=== PATIENT | female | born 1935 | race African-American/Black ===

== ENCOUNTER 2017-01-21 05:20 | Day surgery (SDC) | payer MEDICARE ==
[2017-01-17 11:45] LABS: BASOPHILS 0.7 %; BASOPHILS ABSOLUTE 0.05 10/3/uL (0.0-0.16); EOSINOPHILS 4.9 %; EOSINOPHILS ABSOLUTE 0.35 10/3/uL (0.0-0.53); LYMPHOCYTES 50.3 %; LYMPHOCYTES ABSOLUTE 3.61 10/3/uL (0.67-4.30); MEAN CORPUS HGB CONC 35.3 g/dL (32.0-36.0); MEAN CORPUSCULAR HEMOGLOB 28.5 pg (26.0-34.0); MEAN CORPUSCULAR VOLUME 80.8 fL (80-100); MEAN PLATELET VOLUME 11.4 fL (9.2-13.0); NEUTROPHILS 37.1 %; NEUTROPHILS ABSOLUTE 2.66 10/3/uL (2.02-8.40); PLATELET COUNT 230 10/3/uL (150-400); RED CELL COUNT 4.21 10/6/uL (4.0-5.6); WHITE BLOOD CELLS 7.2 10/3/uL (4.5-10.5)
[2017-01-17 11:46] LABS: MANUAL DIFF NO %
[2017-01-17 11:50] LABS: INTERNATIONAL NORMAL RATI 3.1 UNITS (-)
[2017-01-17 11:51] LABS: PARTIAL THROMBO TIME 47.3 SEC (22.5-37.2); PROTIME (NOT ORD) 31.4 SEC (12.0-14.5)
[2017-01-17 12:00] LABS: BUN (BLOOD UREA NITROGEN) 9 MG/DL (6-23); CALCIUM, SERUM 9.9 MG/DL (8.5-10.4); CHLORIDE, SERUM 107 MMOL/L (96-112); CO2 (CARBON DIOXIDE) 31 MMOL/L (24-34); CREATININE 0.92 MG/DL (0.55-1.02); GFR AFRICAN AMERICAN 69 ML/MIN (>=60); GFR NON AFRICAN AMERICAN 59 ML/MIN (>=60); GLUCOSE, SERUM 92 MG/DL (60-99); POTASSIUM, SERUM 4.1 MMOL/L (3.5-5.3); SODIUM, SERUM 143 MMOL/L (135-148)
[2017-01-18 11:44] LABS: ALKALINE PHOSPHATASE 96 U/L (45-117); SGOT(AST) 14 U/L (5-40); SGPT(ALT) 12 U/L (5-65); TOTAL PROTEIN 7.8 G/DL (6.0-8.5)
[2017-01-18 11:46] LABS: ALBUMIN 3.9 G/DL (3.5-5.0); DIRECT BILIRUBIN 0.1 MG/DL (0.0-0.4); INDIRECT BILIRUBIN(NOT ORDER) 0.3 MG/DL (0.1-0.9); TOTAL BILIRUBIN 0.4 MG/DL (0-1.2)
--- NOTE | ~2017-01-21 | OP ---
Record Of Operation [facility] [address] [place]. [address] NAME: TARAS DOMINGUEZ : 39 STATUS : [facility]#: [id number] AGE: 81 ADM/REG DATE : 01/21/17 MR#: [id number] REPORT SERV DATE: 01/23/17 DICTATED BY: BECK BERG DATE: 01/23/17 REPORT STATUS : Draft TRANSCRIBED BY: MODL DATE: 01/23/17 DATE OF PROCEDURE: 01/21/2017 PREOPERATIVE DIAGNOSIS: Left glottic lesion and dysphonia. POSTOPERATIVE DIAGNOSIS: Left glottic lesion and dysphonia. OPERATIVE PROCEDURE: 1. Microscopic direct laryngoscopy with excisional biopsy of left true vocal fold lesion. 2. Rigid bronchoscopy. 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 Evaluation had been performed in the office with flexible endoscopic exam; however, the patient continued to have problems with dysphonia and actually worsened over time. She desired correction of this and was scheduled for direct laryngoscopy, which would serve both as an excisional biopsy as well as hopefully followup her dysphonia. OPERATIVE PROCEDURE AND FINDINGS: After informed consent was obtained, the patient was brought to the operating room and placed on the operating table in the supine position. At which point, general endotracheal anesthesia was induced with a 6-0 endotracheal tube placed by transoral route. At this point, a Dedo laryngoscope was inserted through guarded alveolar ridge and used to inspect lateral pharyngeal ocampo, posterior pharyngeal wall, hypopharynx including the epiglottis, the lingual and laryngeal surface, piriform sinuses, and esophageal inlet. No lesions were noted in this area. Suspension laryngoscopy was then performed using a rigid Bryant sara telescope, advanced into the subglottic airway. The subglottic airway was noted to be normal to the paz. Upon backing up, endoscopic view of the larynx revealed in the midportion of the left true vocal fold, a small nodule extending from the buccal surface of the mucosa. This was grasped with a 45-degree grasping forceps, and excised sharply using an upbiting scissor. The mucosal defect that remained was quite small and hemostasis was achieved with application of topical adrenaline on a pledget. At this point, I concluded the case. Specimen was sent as left true vocal fold nodule and the patient was turned back toward anesthesia, aroused from anesthesia, and taken to the postanesthesia care unit in satisfactory condition. COMPLICATIONS: None. ESTIMATED BLOOD LOSS: None. IV FLUIDS: Per Anesthesia. DLA/MODDavid Beck Hernandez Record Of [address] [address] NAME: TARAS DOMINGUEZ : 39 STATUS : [facility] PAT#: [id number] AGE: 81 ADM/REG DATE : 01/21/17 MR#: [id number] REPORT SERV DATE: 01/23/17 DICTATED BY: BECK BERG DATE: 01/23/17 REPORT STATUS : Draft TRANSCRIBED BY: MODL DATE: 01/23/17 Jose Berg / [id number] CC: Jose Brown KATRINA V.
[~2017-01-21 05:20] MED LIST: ADVAIR250 INH; ADVIL PO; AMOXIL PO; BENTYL10 PO; BYSTOLIC10 MG PO; CARDU2 PO; CELEXA20 PO; CELEXA40 MG PO; CLARIT10 PO; COREG6 PO; DIOV80 PO; DULERA 100 MCG/13 GM INH; DULERA 200 MCG/13 GM INH; FENESIN IR400 MG PO; FLONASE NAS; HCTZ25B PO; HYDROCHLOROT25 MG PO; IBU-200200 MG PO; IMOD PO; KDUR20 PO; KLOR-CON M2020 MEQ PO; L20 PO; L40 PO; LISINOPRIL40 MG PO; NORCO1 TAB PO; PLAQ200B PO; PRIN20 PO; PROAIR HFA INH; PROBIOTIC OTC PO; PROTONIX PO; PROVENTSOL INH; RANITIDINE300 MG PO; REFRESH PLUS0.5 % OPH; RELA5 PO; REMERON30 MG PO; TEARS NATURA OP; TOPXL50 PO; VENTOLIN HFA INH; VOLT75 PO; XARELTO20 MG PO; ZANTAC300 MG PO; ZEPATIER PO
== END 2017-01-21 10:24 | disposition home or self-care (01) ==
LOC: SDC 05:20
PROVIDERS: Otolaryngology
PROC: 0CBV8ZX Excision of Left Vocal Cord, Via Natural or Artificial Opening Endoscopic, Diagnostic (ICD-10-PCS; principal; 2017-01-21 07:30)
DX: J38.2 Nodules of vocal cords (principal); I10 Essential (primary) hypertension; K21.9 Gastro-esophageal reflux disease without esophagitis; B19.20 Unspecified viral hepatitis C without hepatic coma; J45.909 Unspecified asthma, uncomplicated; J44.9 Chronic obstructive pulmonary disease, unspecified; F32.9 Major depressive disorder, single episode, unspecified; G62.9 Polyneuropathy, unspecified; Z86.718 Personal history of other venous thrombosis and embolism; Z88.2 Allergy status to sulfonamides; Z88.1 Allergy status to other antibiotic agents; Z88.8 Allergy status to other drugs, medicaments and biological substances; Z90.49 Acquired absence of other specified parts of digestive tract; Z90.710 Acquired absence of both cervix and uterus; Z90.81 Acquired absence of spleen; Z82.3 Family history of stroke; Z79.899 Other long term (current) drug therapy; Z98.890 Other specified postprocedural states
CPT/HCPCS: 80048; 80076; 85025; 85610; 85730; 88305; 93005; J0330; J2405; J3010

== ENCOUNTER 2017-02-28 20:31 | Emergency (ER) | payer MEDICARE | END 2017-02-28 21:40 | disposition home or self-care (01) | LOC: ER 20:31 | DX: L76.21 Postprocedural hemorrhage of skin and subcutaneous tissue following a dermatologic procedure (principal); J45.909 Unspecified asthma, uncomplicated; I10 Essential (primary) hypertension; Z88.2 Allergy status to sulfonamides; Z88.1 Allergy status to other antibiotic agents; Z88.8 Allergy status to other drugs, medicaments and biological substances; Z91.09 Other allergy status, other than to drugs and biological substances; Z79.899 Other long term (current) drug therapy | CPT/HCPCS: 99282 ==